=== PATIENT | female | born 1955 | race Caucasian/White ===

== ENCOUNTER 2017-08-12 02:41 | Emergency (ER) | payer OTHER ==
[~2017-08-12] VITALS: Ht 157.5 cm; Wt 75.9 kg
[2017-08-12 02:50] VITALS: Ht 157.5 cm; Wt 75.9 kg
[2017-08-12] MEDS ORDERED: PREDNISONE20 MG PO (03:00)
[2017-08-12] MEDS ORDERED: DICLOFENAC SODI50 MG PO (03:00)
[2017-08-12] MEDS ORDERED: FOLIC ACID1 MG PO (03:01)
[2017-08-12] MEDS ORDERED: PROTONIX40 MG PO (03:02)
[2017-08-12] MEDS ORDERED: AMBIEN10 MG PO (03:03)
[2017-08-12] MEDS ORDERED: HYDROCHLOROTH12.5 M1 PO (03:03)
[2017-08-12] MEDS ORDERED: VITAMIN B-121000 MCG PO (03:04)
[2017-08-12] MEDS ORDERED: CO Q-10100 MG PO (03:04)
[2017-08-12] MEDS ORDERED: XANAX1 MG PO (03:05)
[2017-08-12] MEDS ORDERED: COZAAR25 MG PO (03:05)
[2017-08-12] MEDS ORDERED: ULTRAM50 MG PO (04:27)
[2017-08-12] MEDS ORDERED: NAPROSYN500 MG PO (04:27)
[2017-08-12 04:33] VITALS: BP 135/90
== END 2017-08-12 04:54 | disposition home or self-care (01) ==
LOC: D.ER 02:41
DX: S73.102A Unspecified sprain of left hip, initial encounter (principal); W19.XXXA Unspecified fall, initial encounter; Y93.89 Activity, other specified; Y92.019 Unspecified place in single-family (private) house as the place of occurrence of the external cause; M54.30 Sciatica, unspecified side; M54.5 Low back pain; I10 Essential (primary) hypertension